=== PATIENT | male | born 1965 | race Caucasian/White ===

== ENCOUNTER 2019-06-01 08:13 | Observation (INO) ==
[2019-06-01] MEDS ORDERED: *HR* FentaNYL (PF) 100 MCG/2 ML VIAL IVP ONE (09:18)
[2019-06-01] MEDS ORDERED: 0.9 % Sodium Chloride 1,000 ML IVC ONE ×2 (09:18→10:26)
[2019-06-01] MEDS ORDERED: Ondansetron 4 MG/2 ML VIAL IVP ONE (09:18)
[2019-06-01] MEDS ORDERED: Isovue-370 500 ML BOTTLE IVP ONE (09:18)
--- NOTE | 2019-06-01 09:20 | Emergency Department Note ---
Disposition Clinical Impression: Acute kidney injury Abdominal pain Qualifiers: Abdominal location: unspecified location Qualified Code(s): R10.9 - Unspecified abdominal pain Diarrhea Qualifiers: Diarrhea type: unspecified type Qualified Code(s): R19.7 - Diarrhea, unspecified Disposition: Admitted As Inpatient Condition: Good Time of Disposition: 11:56 Abdominal Pain HPI - General Chief Complaint: ED Abdominal Pain Stated Complaint: Diarrhea, Abdominal pain Time Seen by Provider: 06/01/19 08:21 Source: patient Mode of arrival: ambulatory Limitations: no limitations Nursing Notes Reviewed: Yes Vital Signs Reviewed: Yes - History of Present Illness HPI Narrative: Nontoxic-appearing 53-year-old male with a history of a meticulous is arrives to the ER complaining of abdominal pain and diarrhea 6 days. Patient was treated by primary care provider on Wednesday and prescribed Zofran and Imodium with some relief but patient is concern for dehydration. Patient is unable to tolerate any by mouth liquid or food. He states that anytime he eats or drinks he has immediate cramping and diarrhea. He complains of diffuse lower abdominal pain that is constant with intermittent cramping. Patient also complains of general malaise and nausea. Patient denies chest pain, shortness of breath, fevers, chills, headache. Patient states that this is an ongoing issue with acute exacerbations of diarrhea. Patient was treated for diverticulitis and blood in his stool a couple of years ago. At that time a colonoscopy was performed by Dr. concepcion. Patient is concerned of a possibility of having Crohn's disease due to symptoms and his mother having Crohn's. Pt Subjective Complaint: abdominal pain Onset (ago): day(s) (since wednesday) Consistency: intermittent (Abdominal cramping with any oral intake) Location: diffuse (Lower abdomen) Pain Scale: 0 Quality: cramping, sharp Radiation: none Improves with: bowel movement Worsens with: eating Context: history of similar episodes Associated symptoms: Reports: nausea, diarrhea. Denies: vomiting, fever, chil ls, constipation, dysuria, hematochezia, hematuria Treatments prior to arrival: other (Zofran and Imodium, treated by primary care provider on Wednesday05/30/19) - Related Data Home Medications Medication Instructions Recorded Confirmed Escitalopram [Lexapro] 20 mg PO DAILY 06/01/19 06/01/19 Losartan Potassium [Cozaar] 50 mg PO DAILY 06/01/19 06/01/19 Metoprolol [Lopressor] 50 mg PO DAILY 06/01/19 06/01/19 clonazePAM [Clonazepam] 0.5 mg PO BID PRN 06/01/19 06/01/19 Allergies Allergy/AdvReac Type Severity Reaction Status Date / Time No Known Allergies Allergy Verified 12/29/16 10:58 All systems ED: reviewed and negative except as stated. Review of Systems: As Per HPI Constitutional: Denies: fever, chills, weakness, weight change Eyes: Denies: eye pain, eye discharge, vision change ENT ED: Denies: ear pain, throat pain, dental pain, hearing loss, epistaxis, con gestion, dysphagia Cardiovascular: Denies: chest pain, palpitations, dyspnea on exertion, edema, syncope Respiratory: Denies: cough, dyspnea, wheezes, hemoptysis, stridor Gastrointestinal: Reports: as per HPI, abdominal pain (Diffuse lower abdominal pain), nausea, diarrhea (With any oral intake). Denies: vomiting, constipation, hematemesis, melena, hematochezia Genitourinary: Denies: urgency, dysuria, frequency, hematuria Musculoskeletal: Denies: back pain, neck pain, arthralgia, myalgia Integumentary: Denies: rash, abrasion, lesions Neurological: Denies: headache, weakness, numbness, paresthesias, confusion, abnormal gait, vertigo Psychiatric: Denies: anxiety, depression, suicidal thoughts, homicidal thoughts, auditory hallucinations, visual hallucinations Endocrine: Denies: fatigue Hematological/Lymphatic: Denies: easy bleeding, easy bruising Allergic/Immunologic: Denies: facial swelling, urticaria Abdominal Pain PMH - Past Medical History Medical history: Reports: hypertension Male Surgical History: Reports: no surgical history Psychiatric history: Reports: anxiety, depression - Social History Smoking status: Never smoker Alcohol use: Reports: none Drug use: Reports: none Physical Exam - General Limitations: no limitations General appearance: alert, in no apparent distress - Head Head exam: atraumatic, normocephalic - Eye Eye exam: Present: normal appearance, PERRL, EOMI - ENT ENT exam: mucous membranes dry - Chest Chest inspection: Present: normal inspection, symmetric chest wall rise. Absent: tenderness - Respiratory Respiratory exam: Present: normal lung sounds bilaterally. Absent: respiratory distress, wheezes, accessory muscle use, prolonged expiratory phase - Cardiovascular Cardiovascular exam: Present: regular rate, normal heart sounds, +S1, +S2 - Abdominal Exam Abdominal exam: Present: soft, tenderness, normal bowel sounds, tenderness at McBurney's Point. Absent: distention, guarding, rebound, rigidity, psoas sign, obturator sign, heel tap sign, Amor's sign, Rovsing's sign, mass, pulsatile mass Abdominal tenderness: Present: RLQ (Right lower quadrant pain that increases with palpation), moderate - Extremities Exam Extremities exam: Present: normal inspection, full ROM - Expanded Lower Extremity Exam Neurovascular/Tendon exam: Present: normal capillary refill - Neurological Exam Neurological exam: Present: alert, oriented X3 - Psychiatric Psychiatric exam: Present: normal affect, normal mood - Skin Skin exam: Present: warm, dry, intact, normal color Course Course Narrative: Case discussed with Dr. Goss, ED attending. Dr. Rucker has had a [id number] evaluation with the patient. He recommends admission to medicine with nephrology consult for the patient's intractable diarrhea and acute kidney injury. The patient is agreeable with this plan. I spoke with Dr. Colón of the hospitalist service who has accepted the patient for admission to the hospitalist care. 1152: I spoke with Dr. Clifton, nephrology on-call. Nephrology will consult with this patient in house. Vital Signs Temperature 98.1 F 06/01/19 08:16 Pulse Rate 61 06/01/19 08:16 Respiratory Rate 20 06/01/19 08:16 Blood Pressure 110/71 06/01/19 08:16 O2 Sat by Pulse Oximetry 98 06/01/19 08:16 Temperature 98.1 F 06/01/19 08:16 Pulse Rate 50 06/01/19 10:28 Respiratory Rate 18 06/01/19 10:28 Blood Pressure 111/72 06/01/19 10:28 O2 Sat by Pulse Oximetry 93 06/01/19 10:28 Oxygen Delivery Oxygen Delivery Room Air Abdominal Pain - Medical Records Medical records reviewed: Yes I reviewed the patient's medical records. - Lab Data Lab results reviewed: Yes I reviewed the patient's lab results. Lab results narrative: Lab Results 06/01/19 06/01/19 06/01/19 Range/Units 08:22 08:22 09:20 WBC 8.3 (4.3-11.1) K/mcL RBC 4.74 (4.19-5.50) M/mcL Hgb 14.7 (12.9-16.9) g/dL Hct 44.3 (37.5-50.1) % MCV 93.5 (83.0-100.0) fL MCH 31.0 (28.0-33.3) pg MCHC 33.2 (31.6-35.5) g/dL RDW 13.0 (11.5-14.5) % Plt Count 208 (140-400) K/mcL MPV 9.1 L (9.4-12.4) fL Immature Gran % 0.2 (0-4) % Seg Neutrophils % 76.0 % Lymphocytes % 12.9 % Monocytes % 8.4 % Eosinophils % 2.3 % Basophils % 0.2 % Neutrophils # 6.3 (1.6-8.9) K/mcL Lymphocytes # 1.1 (0.6-4.6) K/mcL Monocytes # 0.7 (0.0-1.3) K/mcL Eosinophils # 0.2 (0.0-0.6) K/mcL Basophils # 0.0 (0.0-0.2) K/mcL Sodium 137 (136-145) mEq/L Potassium 4.1 (3.5-5.1) mEq/L Chloride 104 (98-107) mEq/L Carbon Dioxide 26 (23-29) mEq/L BUN 17 (6-20) mg/dL Creatinine 1.88 H (0.70-1.30) mg/dL Est GFR ( Amer) 45 L (> 60) Est GFR (Non-Af Amer) 37 L (> 60) BUN/Creatinine Ratio 9 (6-26) Glucose 117 H (70-105) mg/dL Calculated Osmolality 287 (280-300) Lactic Acid 0.8 (0.5-2.2) mmol/L Calcium 9.6 (8.6-10.3) mg/dL Magnesium 2.1 (1.6-2.6) mg/dL Total Bilirubin 1.0 (0.3-1.0) mg/dL Direct Bilirubin 0.2 (0.0-0.2) mg/dL Indirect Bilirubin 0.8 (0.0-1.2) mg/dL AST 14 (13-39) Units/L ALT 15 (7-52) Units/L Alkaline Phosphatase 73 (34-104) Units/L Serum Total Protein 7.3 (6.4-8.9) g/dL Albumin 4.1 (3.5-5.7) g/dL Globulin 3.2 (2.4-3.5) g/dL Albumin/Globulin Ratio 1.3 (1.1-2.2) Amylase 53 (29-103) Units/L Lipase 22 (11-82) Units/L Urine Color (Yellow) Urine Clarity (Clear) Urine pH (5.0-8.0) pH Units Ur Specific Lyman (1.010-1.025) Urine Protein (Neg-Trace) mg/dL Urine Glucose (UA) (Normal) mg/dL Urine Ketones (Negative) mg/dL Urine Blood (Negative) Urine Nitrite (Negative) Urine Bilirubin (Negative) Urine Urobilinogen (Normal) mg/dL Ur Leukocyte Esterase (Negative) Ur Culture Indicated? (NO) 06/01/19 Range/Units 10:00 WBC (4.3-11.1) K/mcL RBC (4.19-5.50) M/mcL Hgb (12.9-16.9) g/dL Hct (37.5-50.1) % MCV (83.0-100.0) fL MCH (28.0-33.3) pg MCHC (31.6-35.5) g/dL RDW (11.5-14.5) % Plt Count (140-400) K/mcL MPV (9.4-12.4) fL Immature Gran % (0-4) % Seg Neutrophils % % Lymphocytes % % Monocytes % % Eosinophils % % Basophils % % Neutrophils # (1.6-8.9) K/mcL Lymphocytes # (0.6-4.6) K/mcL Monocytes # (0.0-1.3) K/mcL Eosinophils # (0.0-0.6) K/mcL Basophils # (0.0-0.2) K/mcL Sodium (136-145) mEq/L Potassium (3.5-5.1) mEq/L Chloride (98-107) mEq/L Carbon Dioxide (23-29) mEq/L BUN (6-20) mg/dL Creatinine (0.70-1.30) mg/dL Est GFR ( Amer) (> 60) Est GFR (Non-Af Amer) (> 60) BUN/Creatinine Ratio (6-26) Glucose (70-105) mg/dL Calculated Osmolality (280-300) Lactic Acid (0.5-2.2) mmol/L Calcium (8.6-10.3) mg/dL Magnesium (1.6-2.6) mg/dL Total Bilirubin (0.3-1.0) mg/dL Direct Bilirubin (0.0-0.2) mg/dL Indirect Bilirubin (0.0-1.2) mg/dL AST (13-39) Units/L ALT (7-52) Units/L Alkaline Phosphatase (34-104) Units/L Serum Total Protein (6.4-8.9) g/dL Albumin (3.5-5.7) g/dL Globulin (2.4-3.5) g/dL Albumin/Globulin Ratio (1.1-2.2) Amylase (29-103) Units/L Lipase (11-82) Units/L Urine Color Dark Yellow (Yellow) Urine Clarity Clear (Clear) Urine pH 5.5 (5.0-8.0) pH Units Ur Specific Lyman 1.027 H (1.010-1.025) Urine Protein Trace (Neg-Trace) mg/dL Urine Glucose (UA) Normal (Normal) mg/dL Urine Ketones Negative (Negative) mg/dL Urine Blood Negative (Negative) Urine Nitrite Negative (Negative) Urine Bilirubin Negative (Negative) Urine Urobilinogen Normal (Normal) mg/dL Ur Leukocyte Esterase Negative (Negative) Ur Culture Indicated? NO (NO) Result diagrams: 06/01/19 08:22 06/01/19 08:22 Lab Results 06/01/19 06/01/19 06/01/19 Range/Units 08:22 08:22 09:20 WBC 8.3 (4.3-11.1) K/mcL RBC 4.74 (4.19-5.50) M/mcL Hgb 14.7 (12.9-16.9) g/dL Hct 44.3 (37.5-50.1) % MCV 93.5 (83.0-100.0) fL MCH 31.0 (28.0-33.3) pg MCHC 33.2 (31.6-35.5) g/dL RDW 13.0 (11.5-14.5) % Plt Count 208 (140-400) K/mcL MPV 9.1 L (9.4-12.4) fL Immature Gran % 0.2 (0-4) % Seg Neutrophils % 76.0 % Lymphocytes % 12.9 % Monocytes % 8.4 % Eosinophils % 2.3 % Basophils % 0.2 % Neutrophils # 6.3 (1.6-8.9) K/mcL Lymphocytes # 1.1 (0.6-4.6) K/mcL Monocytes # 0.7 (0.0-1.3) K/mcL Eosinophils # 0.2 (0.0-0.6) K/mcL Basophils # 0.0 (0.0-0.2) K/mcL Sodium 137 (136-145) mEq/L Potassium 4.1 (3.5-5.1) mEq/L Chloride 104 (98-107) mEq/L Carbon Dioxide 26 (23-29) mEq/L BUN 17 (6-20) mg/dL Creatinine 1.88 H (0.70-1.30) mg/dL Est GFR ( Amer) 45 L (> 60) Est GFR (Non-Af Amer) 37 L (> 60) BUN/Creatinine Ratio 9 (6-26) Glucose 117 H (70-105) mg/dL Calculated Osmolality 287 (280-300) Lactic Acid 0.8 (0.5-2.2) mmol/L Calcium 9.6 (8.6-10.3) mg/dL Magnesium 2.1 (1.6-2.6) mg/dL Total Bilirubin 1.0 (0.3-1.0) mg/dL Direct Bilirubin 0.2 (0.0-0.2) mg/dL Indirect Bilirubin 0.8 (0.0-1.2) mg/dL AST 14 (13-39) Units/L ALT 15 (7-52) Units/L Alkaline Phosphatase 73 (34-104) Units/L Serum Total Protein 7.3 (6.4-8.9) g/dL Albumin 4.1 (3.5-5.7) g/dL Globulin 3.2 (2.4-3.5) g/dL Albumin/Globulin Ratio 1.3 (1.1-2.2) Amylase 53 (29-103) Units/L Lipase 22 (11-82) Units/L Urine Color (Yellow) Urine Clarity (Clear) Urine pH (5.0-8.0) pH Units Ur Specific Lyman (1.010-1.025) Urine Protein (Neg-Trace) mg/dL Urine Glucose (UA) (Normal) mg/dL Urine Ketones (Negative) mg/dL Urine Blood (Negative) Urine Nitrite (Negative) Urine Bilirubin (Negative) Urine Urobilinogen (Normal) mg/dL Ur Leukocyte Esterase (Negative) Ur Culture Indicated? (NO) 06/01/19 Range/Units 10:00 WBC (4.3-11.1) K/mcL RBC (4.19-5.50) M/mcL Hgb (12.9-16.9) g/dL Hct (37.5-50.1) % MCV (83.0-100.0) fL MCH (28.0-33.3) pg MCHC (31.6-35.5) g/dL RDW (11.5-14.5) % Plt Count (140-400) K/mcL MPV (9.4-12.4) fL Immature Gran % (0-4) % Seg Neutrophils % % Lymphocytes % % Monocytes % % Eosinophils % % Basophils % % Neutrophils # (1.6-8.9) K/mcL Lymphocytes # (0.6-4.6) K/mcL Monocytes # (0.0-1.3) K/mcL Eosinophils # (0.0-0.6) K/mcL Basophils # (0.0-0.2) K/mcL Sodium (136-145) mEq/L Potassium (3.5-5.1) mEq/L Chloride (98-107) mEq/L Carbon Dioxide (23-29) mEq/L BUN (6-20) mg/dL Creatinine (0.70-1.30) mg/dL Est GFR ( Amer) (> 60) Est GFR (Non-Af Amer) (> 60) BUN/Creatinine Ratio (6-26) Glucose (70-105) mg/dL Calculated Osmolality (280-300) Lactic Acid (0.5-2.2) mmol/L Calcium (8.6-10.3) mg/dL Magnesium (1.6-2.6) mg/dL Total Bilirubin (0.3-1.0) mg/dL Direct Bilirubin (0.0-0.2) mg/dL Indirect Bilirubin (0.0-1.2) mg/dL AST (13-39) Units/L ALT (7-52) Units/L Alkaline Phosphatase (34-104) Units/L Serum Total Protein (6.4-8.9) g/dL Albumin (3.5-5.7) g/dL Globulin (2.4-3.5) g/dL Albumin/Globulin Ratio (1.1-2.2) Amylase (29-103) Units/L Lipase (11-82) Units/L Urine Color Dark Yellow (Yellow) Urine Clarity Clear (Clear) Urine pH 5.5 (5.0-8.0) pH Units Ur Specific Lyman 1.027 H (1.010-1.025) Urine Protein Trace (Neg-Trace) mg/dL Urine Glucose (UA) Normal (Normal) mg/dL Urine Ketones Negative (Negative) mg/dL Urine Blood Negative (Negative) Urine Nitrite Negative (Negative) Urine Bilirubin Negative (Negative) Urine Urobilinogen Normal (Normal) mg/dL Ur Leukocyte Esterase Negative (Negative) Ur Culture Indicated? NO (NO) - Radiology Data Radiology results reviewed: Yes I reviewed the patient's radiology results. Abdomen/Pelvis CT 06/01/19 10:26 IMPRESSION: Sigmoid diverticulosis without acute diverticulitis. Hepatomegaly with moderate steatosis. Mildly enlarged prostate. D/ / Alfie Mcdonald MD / Alife Mcdonald MD Interpreting Provider: Alfie Mcdonald MD
[2019-06-01 09:38] LABS: Basophils % 0.2 %; Eosinophils # 0.2 K/mcL (0.0-0.6); Eosinophils % 2.3 %; Hematocrit 44.3 % (37.5-50.1); Hemoglobin 14.7 g/dL (12.9-16.9); Immature Granulocytes % 0.2 % (0-4); Lymphocytes # 1.1 K/mcL (0.6-4.6); Lymphocytes % 12.9 %; Mean Corpuscular HGB Conc 33.2 g/dL (31.6-35.5); Mean Corpuscular Volume 93.5 fL (83.0-100.0); Mean Platelet Volume 9.1 fL (9.4-12.4); Monocytes # 0.7 K/mcL (0.0-1.3); Monocytes % 8.4 %; Neutrophils # 6.3 K/mcL (1.6-8.9); Platelet Count 208 K/mcL (140-400); Red Blood Count 4.74 M/mcL (4.19-5.50); White Blood Count 8.3 K/mcL (4.3-11.1)
[2019-06-01 09:55] LABS: Albumin 4.1 g/dL (3.5-5.7); Albumin/Globulin Ratio 1.3 (1.1-2.2); Bilirubin,Direct 0.2 mg/dL (0.0-0.2); Bilirubin,Indirect 0.8 mg/dL (0.0-1.2); Calcium 9.6 mg/dL (8.6-10.3); Globulin 3.2 g/dL (2.4-3.5); Magnesium 2.1 mg/dL (1.6-2.6); Potassium 4.1 mEq/L (3.5-5.1); Total Protein 7.3 g/dL (6.4-8.9)
[2019-06-01 10:24] LABS: Bilirubin,Urine Negative (Negative); Blood,Urine Negative (Negative); Clarity,Urine Clear (Clear); Color,Urine Dark Yellow (Yellow); Glucose,Urine (UA) Normal (Normal); Ketones,Urine Negative (Negative); Leukocyte Esterase,Urine Negative (Negative); Nitrite,Urine Negative (Negative); PH,Urine 5.5 pH Units (5.0-8.0); Protein,Urine Trace mg/dL (Neg-Trace); Specific Gravity,Urine 1.027 (1.010-1.025); Urobilinogen,Urine Normal (Normal)
--- NOTE | 2019-06-01 11:30 | Emergency Department Note ---
Disposition Clinical Impression: Acute kidney injury Abdominal pain Qualifiers: Abdominal location: unspecified location Qualified Code(s): R10.9 - Unspecified abdominal pain Diarrhea Qualifiers: Diarrhea type: unspecified type Qualified Code(s): R19.7 - Diarrhea, unspecified Disposition: Admitted As Inpatient Condition: Good Time of Disposition: 11:30 General Adult HPI - General Chief complaint: ED Abdominal Pain Stated complaint: Diarrhea, Abdominal pain Time Seen by Provider: 06/01/19 08:21 Source: patient Mode of arrival: ambulatory Limitations: no limitations Nursing Notes Reviewed: Yes Vital Signs Reviewed: Yes - History of Present Illness Pain Scale: 0 - Related Data Home Medications Medication Instructions Recorded Confirmed Escitalopram [Lexapro] 20 mg PO DAILY 06/01/19 06/01/19 Losartan Potassium [Cozaar] 50 mg PO DAILY 06/01/19 06/01/19 Metoprolol [Lopressor] 50 mg PO DAILY 06/01/19 06/01/19 clonazePAM [Clonazepam] 0.5 mg PO BID PRN 06/01/19 06/01/19 Allergies Allergy/AdvReac Type Severity Reaction Status Date / Time No Known Allergies Allergy Verified 12/29/16 10:58 Constitutional: Denies: fever, chills, weakness, weight change Eyes: Denies: eye pain, eye discharge, vision change ENT ED: Denies: ear pain, throat pain, dental pain, hearing loss, epistaxis, congestion, dysphagia Cardiovascular: Denies: chest pain, palpitations, dyspnea on exertion, edema, syncope Respiratory: Denies: cough, dyspnea, wheezes, hemoptysis, stridor Gastrointestinal: Reports: as per HPI, abdominal pain (Diffuse lower abdominal pain), nausea, diarrhea (With any oral intake). Denies: vomiting, constipation, hematemesis, melena, hematochezia Genitourinary: Denies: urgency, dysuria, frequency, hematuria Musculoskeletal: Denies: back pain, neck pain, arthralgia, myalgia Integumentary: Denies: rash, abrasion, lesions Neurological: Denies: headache, weakness, numbness, paresthesias, confusion, abnormal gait, vertigo Psychiatric: Denies: anxiety, depression, suicidal thoughts, homicidal thoughts, auditory hallucinations, visual hallucinations Endocrine: Denies: fatigue Hematological/Lymphatic: Denies: easy bleeding, easy bruising Allergic/Immunologic: Denies: facial swelling, urticaria Past Medical History - Past Medical History Medical history: Reports: hypertension Psychiatric history: Reports: anxiety, depression - Social History Smoking Status: Never smoker Smokeless Tobacco Status: No Alcohol use: Reports: none Drug use: Reports: none Physical Exam - General Limitations: no limitations General appearance: alert, in no apparent distress Course Vital Signs Temperature 98.1 F 06/01/19 08:16 Pulse Rate 61 06/01/19 08:16 Respiratory Rate 20 06/01/19 08:16 Blood Pressure 110/71 06/01/19 08:16 O2 Sat by Pulse Oximetry 98 06/01/19 08:16 Temperature 98.1 F 06/01/19 08:16 Pulse Rate 50 06/01/19 10:28 Respiratory Rate 18 06/01/19 12:16 Blood Pressure 103/77 06/01/19 12:16 O2 Sat by Pulse Oximetry 93 06/01/19 10:28 Oxygen Delivery Oxygen Delivery Room Air Medical Decision Making - MDM Narrative Medical decision making narrative: Abdomen/Pelvis CT 06/01/19 10:26 IMPRESSION: Sigmoid diverticulosis without acute diverticulitis. Hepatomegaly with moderate steatosis. Mildly enlarged prostate. D/ / Alife Mcdonald MD / Alfie Mcdonald MD Interpreting Provider: Alfie Mcdonald MD - Lab Data Result diagrams: 06/01/19 08:22 06/01/19 08:22 Lab Results 06/01/19 06/01/19 06/01/19 Range/Units 08:22 08:22 09:20 WBC 8.3 (4.3-11.1) K/mcL RBC 4.74 (4.19-5.50) M/mcL Hgb 14.7 (12.9-16.9) g/dL Hct 44.3 (37.5-50.1) % MCV 93.5 (83.0-100.0) fL MCH 31.0 (28.0-33.3) pg MCHC 33.2 (31.6-35.5) g/dL RDW 13.0 (11.5-14.5) % Plt Count 208 (140-400) K/mcL MPV 9.1 L (9.4-12.4) fL Immature Gran % 0.2 (0-4) % Seg Neutrophils % 76.0 % Lymphocytes % 12.9 % Monocytes % 8.4 % Eosinophils % 2.3 % Basophils % 0.2 % Neutrophils # 6.3 (1.6-8.9) K/mcL Lymphocytes # 1.1 (0.6-4.6) K/mcL Monocytes # 0.7 (0.0-1.3) K/mcL Eosinophils # 0.2 (0.0-0.6) K/mcL Basophils # 0.0 (0.0-0.2) K/mcL Sodium 137 (136-145) mEq/L Potassium 4.1 (3.5-5.1) mEq/L Chloride 104 (98-107) mEq/L Carbon Dioxide 26 (23-29) mEq/L BUN 17 (6-20) mg/dL Creatinine 1.88 H (0.70-1.30) mg/dL Est GFR ( Amer) 45 L (> 60) Est GFR (Non-Af Amer) 37 L (> 60) BUN/Creatinine Ratio 9 (6-26) Glucose 117 H (70-105) mg/dL Calculated Osmolality 287 (280-300) Lactic Acid 0.8 (0.5-2.2) mmol/L Calcium 9.6 (8.6-10.3) mg/dL Magnesium 2.1 (1.6-2.6) mg/dL Total Bilirubin 1.0 (0.3-1.0) mg/dL Direct Bilirubin 0.2 (0.0-0.2) mg/dL Indirect Bilirubin 0.8 (0.0-1.2) mg/dL AST 14 (13-39) Units/L ALT 15 (7-52) Units/L Alkaline Phosphatase 73 (34-104) Units/L Serum Total Protein 7.3 (6.4-8.9) g/dL Albumin 4.1 (3.5-5.7) g/dL Globulin 3.2 (2.4-3.5) g/dL Albumin/Globulin Ratio 1.3 (1.1-2.2) Amylase 53 (29-103) Units/L Lipase 22 (11-82) Units/L Urine Color (Yellow) Urine Clarity (Clear) Urine pH (5.0-8.0) pH Units Ur Specific Fries (1.010-1.025) Urine Protein (Neg-Trace) mg/dL Urine Glucose (UA) (Normal) mg/dL Urine Ketones (Negative) mg/dL Urine Blood (Negative) Urine Nitrite (Negative) Urine Bilirubin (Negative) Urine Urobilinogen (Normal) mg/dL Ur Leukocyte Esterase (Negative) Ur Culture Indicated? (NO) 06/01/19 Range/Units 10:00 WBC (4.3-11.1) K/mcL RBC (4.19-5.50) M/mcL Hgb (12.9-16.9) g/dL Hct (37.5-50.1) % MCV (83.0-100.0) fL MCH (28.0-33.3) pg MCHC (31.6-35.5) g/dL RDW (11.5-14.5) % Plt Count (140-400) K/mcL MPV (9.4-12.4) fL Immature Gran % (0-4) % Seg Neutrophils % % Lymphocytes % % Monocytes % % Eosinophils % % Basophils % % Neutrophils # (1.6-8.9) K/mcL Lymphocytes # (0.6-4.6) K/mcL Monocytes # (0.0-1.3) K/mcL Eosinophils # (0.0-0.6) K/mcL Basophils # (0.0-0.2) K/mcL Sodium (136-145) mEq/L Potassium (3.5-5.1) mEq/L Chloride (98-107) mEq/L Carbon Dioxide (23-29) mEq/L BUN (6-20) mg/dL Creatinine (0.70-1.30) mg/dL Est GFR ( Amer) (> 60) Est GFR (Non-Af Amer) (> 60) BUN/Creatinine Ratio (6-26) Glucose (70-105) mg/dL Calculated Osmolality (280-300) Lactic Acid (0.5-2.2) mmol/L Calcium (8.6-10.3) mg/dL Magnesium (1.6-2.6) mg/dL Total Bilirubin (0.3-1.0) mg/dL Direct Bilirubin (0.0-0.2) mg/dL Indirect Bilirubin (0.0-1.2) mg/dL AST (13-39) Units/L ALT (7-52) Units/L Alkaline Phosphatase (34-104) Units/L Serum Total Protein (6.4-8.9) g/dL Albumin (3.5-5.7) g/dL Globulin (2.4-3.5) g/dL Albumin/Globulin Ratio (1.1-2.2) Amylase (29-103) Units/L Lipase (11-82) Units/L Urine Color Dark Yellow (Yellow) Urine Clarity Clear (Clear) Urine pH 5.5 (5.0-8.0) pH Units Ur Specific Fries 1.027 H (1.010-1.025) Urine Protein Trace (Neg-Trace) mg/dL Urine Glucose (UA) Normal (Normal) mg/dL Urine Ketones Negative (Negative) mg/dL Urine Blood Negative (Negative) Urine Nitrite Negative (Negative) Urine Bilirubin Negative (Negative) Urine Urobilinogen Normal (Normal) mg/dL Ur Leukocyte Esterase Negative (Negative) Ur Culture Indicated? NO (NO) Attestation Statement - Attestation Attestation: This documentation is done with the assistance of Dragon dictation. Despite efforts made to ensure accuracy, there may be inaccuracies in taco maker or spelling and typographical errors. I have personally performed a face to face evaluation on this patient. I have reviewed and agree with the care plan. History and Exam by me shows: Patient was seen and evaluated by the nurse practitioner Antonio Hill and myself, I agree with his evaluation management plan. Patient presents today with abdominal pain he has had a history of diverticulosis but not diverticulitis. He has been using Imodium at home he thought may be picked up some type of a viral infection. He has pain in his left lower quadrant. CT exam is negative. His creatinine is bumped. I think this is from dehydration. I like to bring him in the hospital. He is agreeing that plan. Of note his doctor's been recommending him have a colonoscopy for the last couple years he says last one was was more than 5 or 10 years ago. We will speak with hospitalist for admission. Patient's getting IV fluids at this time.
--- NOTE | 2019-06-01 14:18 | Internal Med History&Physical ---
Date of Encounter: 06/01/19 Time of Encounter: 14:16 Internal Medicine - H&P: HPI History of present illness: Mr. Gutierrez is a 53 year old male home presented with progressive worsening abdominal pain associated with persistent diarrhea for almost 40 daily patient, and the patient was seen by his primary care physician who started him on Zofran as well as Imodium with no significant relief of his symptoms. The patient stated that he was not able to eat for the last 24 hour due to severe that started after each meal. the patient reported significant improvement of the HEENT that area since a.m., he has only one bowel movement that this did lose, however he didn't believe that that because he is not eating, The patient was evaluated by the ER staff and lubricated that was suggestive of acute kidney injury, the patient was admitted for further evaluation and management. Past Med Surg Social Fam HX - Past Medical History Medical history: hypertension Additional medical history: diverticulosis Psychiatric history: anxiety, depression - Social History Smoking Status: Never smoker Smokeless Tobacco Status: No Alcohol use: none Drug use: none Internal Medicine - H&P: Meds Escitalopram [Lexapro] 10 mg PO DAILY 06/01/19 [History] Metoprolol Succinate [Toprol Xl] 50 mg PO DAILY 06/01/19 [History] Ondansetron HCl 8 mg PO Q8H PRN 06/01/19 [History] clonazePAM [Clonazepam] 0.5 mg PO BID PRN 06/01/19 [History] Ciprofloxacin HCl [Cipro] 500 mg PO BID 3 Days #6 tablet 06/03/19 [Rx] Lactobacillus [Culturelle] 2 each PO DAILY 6 Days #18 cap.[email or web address] 06/03/19 [Rx] Allergy/AdvReac Type Severity Reaction Status Date / Time No Known Allergies Allergy Verified 06/01/19 22:05 All Systems PM: A 10-system review of systems was performed and is negative for pertinent findings except as documented above in the HPI. - Constitutional Vitals: Temp Pulse Resp BP Pulse Ox 98.1 F 50 18 103/77 93 06/01/19 08:16 06/01/19 10:28 06/01/19 12:16 06/01/19 12:16 06/01/19 10:28 Exam: ` - Head Head exam: Present: atraumatic, normocephalic - Eye Eye exam: Present: PERRL, conjuntiva pink, sclera anicteric Pupils: Present: PERRL - Neck Neck exam general surgery: Present: supple, trachea midline. Absent: lymphadenopathy - Respiratory Respiratory exam: Present: CTAB. Absent: accessory muscle use, rales, rhonchi, wheezes - Cardiovascular Cardiovascular exam: Present: RRR, +S1, +S2. Absent: diastolic murmur, gallop, rubs, systolic murmur - GI/Abdominal GI/Abdominal exam: Present: normal bowel sounds, soft, no peritoneal signs. Absent: distended, tenderness - Extremities Exam Extremities exam: Present: warm, radial pulses palpable and symmetrical. Absent: calf tenderness, cyanotic, pedal edema - Neurological Exam Neurological exam: Present: CN II-XII intact, oriented X3, no focal deficits. Absent: pronater drift, facial droop, speech deficit - Skin Skin exam: Present: dry, intact Internal Med - H&P Results - Labs CBC & Chem 7: 06/02/19 05:09 06/03/19 02:12 Labs: Short CBC 06/01/19 Range/Units 08:22 WBC 8.3 (4.3-11.1) K/mcL Hgb 14.7 (12.9-16.9) g/dL Hct 44.3 (37.5-50.1) % Plt Count 208 (140-400) K/mcL Neutrophils # 6.3 (1.6-8.9) K/mcL BMP 06/01/19 08:22 Sodium 137 Potassium 4.1 Chloride 104 Carbon Dioxide 26 BUN 17 Creatinine 1.88 H Glucose 117 H Calcium 9.6 Liver Function 06/01/19 Range/Units 08:22 Total Bilirubin 1.0 (0.3-1.0) mg/dL Direct Bilirubin 0.2 (0.0-0.2) mg/dL AST 14 (13-39) Units/L ALT 15 (7-52) Units/L Alkaline Phosphatase 73 (34-104) Units/L Albumin 4.1 (3.5-5.7) g/dL Urine 06/01/19 Range/Units 10:00 Urine Color Dark Yellow (Yellow) Urine Clarity Clear (Clear) Urine pH 5.5 (5.0-8.0) pH Units Ur Specific [place] 1.027 H (1.010-1.025) Urine Protein Trace (Neg-Trace) mg/dL Urine Glucose (UA) Normal (Normal) mg/dL - Impressions ITS Impressions Abdomen/Pelvis CT 06/01/19 10:26 IMPRESSION: Sigmoid diverticulosis without acute diverticulitis. Hepatomegaly with moderate steatosis. Mildly enlarged prostate. D/ / Alfie Mcdonald MD / Alfie Mcdonald MD Interpreting Provider: Alfie Mcdonald MD - Assessment and Plan (1) Diarrhea Current Visit: Yes Status: Acute Assessment and plan: the patient is complaining of persistent crampy abdomen pain associated with d iarrhea, DD *Gastroenteritis *Gastritis *Diverticulitis PLAN: - NPO apart from meds and advance diet as tolerated - IVF - Stool WBC, O/P, C/S, Stool C.diff - Urine C+S - CBCD, BMP in AM - Zofran (ondansetron) PRN - DVT prophylaxis Qualifiers: Diarrhea type: unspecified type Qualified Code(s): R19.7 - Diarrhea, unspecified (2) Acute kidney injury Current Visit: Yes Status: Acute Assessment and plan: Most likely secondary to volume depletion in the setting of severe persistent diarrhea and decreased oral intake, we'll start the patient on normal saline, continue to monitor renal function test, renal dosing of medication as the current EGFR. (3) Hypertension Current Visit: Yes Status: Acute Assessment and plan: we'll continue to hold losartan for now giving his kidney injury, constipation when necessary antihypertensive for systolic blood pressure above 180 and the blood pressure above 100. Qualifiers: Qualified Code(s): I10 - Essential (primary) hypertension - Time Spent With Patient Total time spent is greater than 50% in coordination of care (as documented) at patient's floor/unit and/or counseling patient:
--- NOTE | 2019-06-01 14:52 | Nephrology Consult Note ---
Date of Encounter: 06/01/19 Time of Encounter: 13:15 Assessment and Plan (1) Acute kidney injury Current Visit: Yes Status: Acute He has a simple nonoliguric acute kidney injury of prerenal etiology from the diarrhea. I recommend volume expansion with IV fluids. He does have a positive family history for CKD with his father, and he requested to have nephrology consulted since his father sees Dr. Latham. I recommend IV fluid replacement, and following a renal protective strategy: avoid nephrotoxic agents as able, follow strict I's and O's and daily weights, and renal dosing until his renal function improves, which most likely well. Thank you for having consulted the [facility], and my colleague Dr. Latham will be on-call starting on Wednesday morning. (2) Abdominal pain Current Visit: Yes Status: Acute As per primary Qualifiers: Abdominal location: unspecified location Qualified Code(s): R10.9 - U nspecified abdominal pain (3) Diarrhea Current Visit: Yes Status: Acute As per primary. Qualifiers: Diarrhea type: unspecified type Qualified Code(s): R19.7 - Diarrhea, un specified (4) Hypertension Current Visit: Yes Status: Acute Hold the losartan in the setting of the DELONTE. Qualifiers: Qualified Code(s): I10 - Essential (primary) hypertension History of Present Illness - Reason for Consult Consult date: 06/01/19 Acute Kidney Injury Requesting physician: Antonio Hill - Chief Complaint Diarrhea with DELONTE - History of Present Illness Patient is a very pleasant 53-year-old male with a past medical history of anxiety, depression, hypertension and et al who presented after several days of diarrhea. He was found in the emergency department of elevated serum creatinine, which was new, and nephrology was consulted. Patient said that his father has chronic kidney disease and sees Dr. Latham. Patient reported that he is not himself seen a senior sharepoint architect in the past, and he denied consuming excessive NSAIDs. He reports that he typically tries to consume lots of water, but since his diarrhea became prominent, and he was not able to consume liquids and foods as well as he typically does. He did not see blood in the stool. He was accompanied by spouse, and she has not been ill for many shared meals. Family History: father has CKD Past Med Surg Social Fam HX - Past Medical History Medical history: hypertension Additional medical history: diverticulosis Psychiatric history: anxiety, depression - Social History Smoking Status: Never smoker Smokeless Tobacco Status: No Alcohol use: none Drug use: none Medications and Allergies Escitalopram [Lexapro] 10 mg PO DAILY 06/01/19 [History] Losartan Potassium [Cozaar] 50 mg PO DAILY 06/01/19 [History] Metoprolol Succinate [Toprol Xl] 50 mg PO DAILY 06/01/19 [History] Ondansetron HCl 8 mg PO Q8H PRN 06/01/19 [History] clonazePAM [Clonazepam] 0.5 mg PO BID PRN 06/01/19 [History] Allergy/AdvReac Type Severity Reaction Status Date / Time No Known Allergies Allergy Verified 06/01/19 22:05 Review of Systems All Systems: reviewed and no additional remarkable complaints except as stated Exam - Vital Signs Vital signs: Initial Vital Signs Temp Pulse Resp BP Pulse Ox 98.1 F 61 20 110/71 98 06/01/19 08:16 06/01/19 08:16 06/01/19 08:16 06/01/19 08:16 06/01/19 08:16 Vital Signs - Last 8 Hours Temp Pulse Resp BP Pulse Ox 06/01/19 12:16 18 103/77 06/01/19 10:28 50 18 111/72 93 06/01/19 08:16 98.1 F 61 20 110/71 98 Intake and Output 05/31/19 06/01/19 06/01/19 23:59 07:59 15:59 Intake Total 1999 Balance 1999 Intake: IV Fluids 1999 0.9 % Sodium Chloride 1,000 ML 1999 @ 999 mls/hr IVC .Q1H1M [facility] Rx# :[id number] Other: Weight 117.299 kg Patient Weight 06/01/19 23:59 Weight 117.299 kg - General Appearance General appearance: well-developed, well-nourished, appears started age EENT: ATNC, PERRL, mucous membranes moist Neck: no JVD, supple Respiratory: no kyphosis, clear Cardiology: no murmurs, no edema, regular rate, regular rhythm, normal S1, normal S2 Gastrointestinal: normoactive bowel sounds, no tenderness, no guarding Integumentary: no rash, warm and dry Neurologic: no focal deficit, no asterixis, alert and oriented x3 Musculoskeletal: no deformities, no erythema, no cyanosis Psychiatric: mood/affect appropriate, cooperative Results - Lab Results 06/02/19 05:09 06/02/19 05:09 Most recent lab results 06/01/19 08:22 Calcium 9.6 Magnesium 2.1 Consult Discharge Plan - Plan Referrals: Kimo Pablo MD [Primary Care Provider] -
[2019-06-01] MEDS ORDERED: Naloxone 0.4 MG/ML INJ IVP PRN (16:24)
[2019-06-01] MEDS: 0.9 % Sodium Chloride 1,000 ML IVC SCH (17:29)
[2019-06-01 18:09] LABS: Adenovirus F 40/41 PCR Not detected (Not detect); Astrovirus PCR Not detected (Not detect); C.difficile Toxin A/B Gene PCR Not detected (Not detect); Campylobacter by PCR Not detected (Not detect); Cryptosporidium by PCR Not detected (Not detect); Cyclospora cayetanensis PCR Not detected (Not detect); E. coli O157 by PCR Not detected (Not detect); Entamoeba histolytica PCR Not detected (Not detect); Enteroaggregative E.coli(EAEC) Not detected (Not detect); Enteropathogenic E.coli(EPEC) Not detected (Not detect); Enterotoxigenic E.coli (ETEC) Not detected (Not detect); Giardia lamblia PCR Not detected (Not detect); Norovirus GI/GII PCR Not detected (Not detect); Plesiomonas shigelloides PCR Not detected (Not detect); Rotavirus A PCR Not detected (Not detect); Salmonella PCR Not detected (Not detect); Sapovirus PCR Not detected (Not detect); Shig/EnteroinvasiveE coli EIEC Not detected (Not detect); Shigalike tox-prod E coli STEC Not detected (Not detect); Vibrio PCR Not detected (Not detect); Vibrio cholerae PCR Not detected (Not detect); Yersinia enterocolitica PCR Not detected (Not detect)
[2019-06-01] MEDS ORDERED: clonazePAM 0.5 MG TABLET PO PRN (20:46)
[2019-06-02] MEDS: 0.9 % Sodium Chloride 1,000 ML IVC SCH (01:27)
[2019-06-02 05:29] LABS: Basophils % 0.3 %; Eosinophils # 0.2 K/mcL (0.0-0.6); Eosinophils % 3.2 %; Hematocrit 39.6 % (37.5-50.1); Immature Granulocytes % 0.5 % (0-4); Lymphocytes # 1.5 K/mcL (0.6-4.6); Lymphocytes % 22.8 %; Mean Corpuscular HGB Conc 32.8 g/dL (31.6-35.5); Mean Corpuscular Hemoglobin 31.4 pg (28.0-33.3); Mean Corpuscular Volume 95.7 fL (83.0-100.0); Mean Platelet Volume 9.1 fL (9.4-12.4); Monocytes # 0.6 K/mcL (0.0-1.3); Monocytes % 8.9 %; Neutrophils # 4.3 K/mcL (1.6-8.9); Platelet Count 169 K/mcL (140-400); Red Blood Count 4.14 M/mcL (4.19-5.50); Red Cell Distribution Width 12.9 % (11.5-14.5); Segmented Neutrophils % 64.3 %; White Blood Count 6.6 K/mcL (4.3-11.1)
[2019-06-02 05:35] LABS: INR 1.1; Prothrombin Time 12.6 Seconds (9.4-12.1)
[2019-06-02 05:38] LABS: Activated Partial Thrombo Time 32.9 Seconds (26.0-36.0)
[2019-06-02 05:49] LABS: Albumin 3.4 g/dL (3.5-5.7); Albumin/Globulin Ratio 1.3 (1.1-2.2); Bilirubin,Total 0.8 mg/dL (0.3-1.0); Calcium 8.7 mg/dL (8.6-10.3); Chol/HDL Ratio 4.7 (0-4.9); Globulin 2.6 g/dL (2.4-3.5); Magnesium 1.9 mg/dL (1.6-2.6); Phosphorous 2.7 mg/dL (2.7-4.5); Potassium 3.9 mEq/L (3.5-5.1)
--- NOTE | 2019-06-02 08:24 | Internal Med Progress Note ---
Hospitalist Progress Note - Encounter Date of Encounter: 06/02/19 Time of Encounter: 08:23 - Subjective Interval History: Patient seen and examined this morning and was in no acute overnight events. Denies new complaints. He had about 3-4 episodes of loose watery bowel movement. Afebrile and hemodynamically stable. Feeling much better today. Denies any abdominal pain currently but had some overnight. Denies any blood in stool. Denies any nausea or vomiting. - Exam Vitals: Temp Pulse Resp BP Pulse Ox 97.8 F 59 15 127/82 97 06/02/19 06:53 06/02/19 06:53 06/02/19 06:53 06/02/19 06:53 06/02/19 06:53 Exam: General: In no acute distress. obese Respiratory exam: CTAB. no accessory muscle use, rales, rhonchi, wheezes Cardiovascular exam: RRR, +S1, +S2. no murmur, gallop, rubs. GI/Abdominal exam: Non-tender, Non-distended, normal bowel sounds, soft, no peritoneal signs. Extremities exam: no pedal edema, pulses palpable in b/l lower extremities. no calf tenderness Neurological exam: CN II-XII intact, AO X3, no focal deficits. Skin exam: No skin rash - Assessment and Plan (1) Abdominal pain Current Visit: Yes Status: Acute (2) Diarrhea Current Visit: Yes Status: Acute (3) Acute kidney injury Current Visit: Yes Status: Acute (4) Hypertension Current Visit: Yes Status: Acute - Summary of Assessment and Plan Summary of Assessment and Plan: Assessment Acute Acute diarrhea DELONTE Chronic depression, anxiety HTN Plan - c/w IVF with LR. Keep NPO for now to give bowel rest. Resume diet at night. No leukocytosis, GI panel negative. UA unremarkable. No change in medication, OTC mediacation, New place of food or sick contact. 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 CT abdomen unremarkable. Possibly viral infection. Keep on probiotics - Renal function improving. c/w IVF. Likely prerenal. Nephrology consulted. Hold losartan for now. BP stable. - c/w home antidepressants. Internal Medicine: Result - Labs CBC & Chem 7: 06/02/19 05:09 06/02/19 05:09 Labs: Short CBC 06/01/19 06/02/19 Range/Units 08:22 05:09 WBC 8.3 6.6 (4.3-11.1) K/mcL Hgb 14.7 13.0 D (12.9-16.9) g/dL Hct 44.3 39.6 (37.5-50.1) % Plt Count 208 169 (140-400) K/mcL Neutrophils # 6.3 4.3 (1.6-8.9) K/mcL BMP 06/01/19 06/02/19 08:22 05:09 Sodium 137 139 Potassium 4.1 3.9 Chloride 104 105 Carbon Dioxide 26 25 BUN 17 14 Creatinine 1.88 H 1.65 H Glucose 117 H 104 Calcium 9.6 8.7 Liver Function 06/01/19 06/02/19 Range/Units 08:22 05:09 Total Bilirubin 1.0 0.8 (0.3-1.0) mg/dL Direct Bilirubin 0.2 (0.0-0.2) mg/dL AST 14 10 L (13-39) Units/L ALT 15 11 (7-52) Units/L Alkaline Phosphatase 73 68 (34-104) Units/L Albumin 4.1 3.4 L (3.5-5.7) g/dL Urine 06/01/19 Range/Units 10:00 Urine Color Dark Yellow (Yellow) Urine Clarity Clear (Clear) Urine pH 5.5 (5.0-8.0) pH Units Ur Specific [place] 1.027 H (1.010-1.025) Urine Protein Trace (Neg-Trace) mg/dL Urine Glucose (UA) Normal (Normal) mg/dL - ABG Interpretation ABG results: PT/INR, D-dimer PT 12.6 Seconds (9.4-12.1) H 06/02/19 05:09 - Impressions Impressions Abdomen/Pelvis CT 06/01/19 10:26 IMPRESSION: Sigmoid diverticulosis without acute diverticulitis. Hepatomegaly with moderate steatosis. Mildly enlarged prostate. D/ / Alfie Mcdonald MD / Alfie Mcdonald MD Interpreting Provider: Alfie Mcdonald MD Consult Discharge Plan - Plan Referrals: Beam,Kimo W, MD [Primary Care Provider] - (1) Abdominal pain Qualifiers: Abdominal location: unspecified location Qualified Code(s): R10.9 - Unspecified abdominal pain (2) Diarrhea Qualifiers: Diarrhea type: unspecified type Qualified Code(s): R19.7 - Diarrhea, unspecified
[2019-06-02] MEDS: Pantoprazole 40 MG VIAL IVP SCH (09:37)
[2019-06-02] MEDS: Metoprolol XL (24 HR) Succ 50 MG TAB.ER.24H PO SCH (09:38)
[2019-06-02] MEDS: Ringers Solution, Lactated 1,000 ML IVC SCH ×2 (10:38→19:50)
[2019-06-02] MEDS: Lactobacillus 1 EACH CAP.SPRINK PO SCH (10:38)
--- NOTE | 2019-06-02 18:27 | Nephrology Progress Note ---
Date of Encounter: 06/02/19 - Assessment and Plan (1) Abdominal pain Current Visit: Yes Status: Acute Qualifiers: Abdominal location: unspecified location Qualified Code(s): R10.9 - Unspecified abdominal pain (2) Diarrhea Current Visit: Yes Status: Acute Qualifiers: Diarrhea type: unspecified type Qualified Code(s): R19.7 - Diarrhea, unspecified (3) Acute kidney injury Current Visit: Yes Status: Acute (4) Hypertension Current Visit: Yes Status: Acute Qualifiers: Qualified Code(s): I10 - Essential (primary) hypertension Objective - Vital Signs Vital signs: Vital Signs Temp Pulse Resp BP Pulse Ox 06/02/19 14:27 97.3 F L 75 15 122/80 98 06/02/19 10:27 97.4 F L 54 15 130/74 97 06/02/19 09:40 97 06/02/19 06:53 97.8 F 59 15 127/82 97 06/02/19 03:14 97.8 F 57 14 130/74 97 06/01/19 23:01 98.0 F 71 14 146/86 97 06/01/19 19:17 97.9 F 68 17 115/67 98 Intake and Output 06/02/19 06/02/19 06/02/19 07:59 15:59 23:59 Intake Total 1000 / 2000 1000 / 2000 0 / 2000 Output Total 400 / 800 400 / 800 Balance 600 / 1200 600 / 1200 0 / 1200 Intake: IV Fluids 1000 / 2000 1000 / 2000 0.9 % Sodium Chloride 1,000 ML 1000 / 2000 1000 / 2000 @ 125 mls/hr IVC .Q8H [facility] Rx#: [id number] Oral 0 / 0 0 / 0 Output: Urine 400 / 800 400 / 800 Other: Meal npo Dinner Percent of Meal Consumed 0% Stool Size Large Stool Consistency liquid Stool Color Brown Yellow Green # Voids 1 # Bowel Movements 3 Weight 116.3 kg Blood Glucose* 87 Patient Weight 06/02/19 23:59 Weight 116.3 kg - Lab 06/02/19 05:09 06/02/19 05:09 Consult Discharge Plan - Plan Referrals: Kimo Pablo MD [Primary Care Provider] -
[2019-06-03 02:49] LABS: Potassium 3.8 mEq/L (3.5-5.1)
[2019-06-03] MEDS: Ringers Solution, Lactated 1,000 ML IVC SCH (03:17)
[2019-06-03] MEDS: Pantoprazole 40 MG VIAL IVP SCH (08:50)
[2019-06-03] MEDS: Lactobacillus 1 EACH CAP.SPRINK PO SCH (08:51)
[2019-06-03] MEDS: Metoprolol XL (24 HR) Succ 50 MG TAB.ER.24H PO SCH (08:51)
[2019-06-03] MEDS ORDERED: Ringers Solution, Lactated 500 ML IVC ONE (10:26)
[2019-06-03 10:48] VITALS: BP 141/82
[2019-06-03] MEDS ORDERED: 0.9 % Sodium Chloride 500 ML ONE (11:34)
--- NOTE | 2019-06-03 11:36 | Discharge Summary ---
- NOTES TO OUTPATIENT PROVIDER Notes to Outpatient Provider: Patient was given a prescription of ciprofloxacin for 3 days to take or if he continues to have severe diarrhea. He was asked to hold losartan until follow-up BMP done next week. Patient is concerned for unclear reason urine after explanation and clinical improvement of diarrhea and renal function. However he continues to do have diarrhea beyond 2-3 weeks Will need GI consultation for possible colonoscopy. Orders not resulted at time of discharge: Pending orders 06/02/19 04:00 Urinalysis reflex Microscopic [URIN] AM 0400 Date of Encounter: 06/03/19 Time of Encounter: 11:34 - Discharge Diagnosis (1) Abdominal pain Priority: Secondary Status: Acute Qualifiers: Abdominal location: generalized Qualified Code(s): R10.84 - Generalized abdominal pain (2) Diarrhea Priority: Primary Status: Acute Qualifiers: Diarrhea type: unspecified type Qualified Code(s): R19.7 - Diarrhea, unspecified (3) Acute kidney injury Priority: Primary Status: Acute (4) Hypertension Priority: Secondary Status: Acute Qualifiers: Qualified Code(s): I10 - Essential (primary) hypertension Hospital course: Mr. Gutierrez is a 53 year old male with past medical history of anxiety, depression, hypertension came in with complain of persistent severe diarrhea was found to have DELONTE. Patient is losartan was held and patient was given IV fluids. GI panel was unremarkable as well as urine analysis was unremarkable. He did not have any fevers, leukocytosis. His diarrhea clinically improved with only about 4 a day yesterday. He was not started on any antibiotics. His renal function improved however not completely at baseline however his renal baseline is not completely known but he denies any renal history. He did appear somewhat distressed for unclear reason. After discussion we will prescribe ciprofloxacin for 3 days to be taken if he continues to have severe diarrhea more than 5-6 episodes and not able to keep himself hydrated. Will need follow- up BMP next week and PCP follow-up. Losartan has been held for now until follow-up care. Asked him to take Imodium for symptomatic relief. Discharge discussed with: patient, family, nurse, [employer] [facility] consultant - Time Spent with Patient Total time spent providing and/or coordinating discharge services: Time spent: Greater than 30 minutes (40) - Discharge Medications Prescriptions: New Ciprofloxacin HCl [Cipro] 500 mg PO BID 3 Days #6 tablet Lactobacillus [Culturelle] 2 each PO DAILY 6 Days #18 [email or web address] Continued Escitalopram [Lexapro] 10 mg PO DAILY clonazePAM [Clonazepam] 0.5 mg PO BID PRN PRN Reason: Anxiety Metoprolol Succinate [Toprol Xl] 50 mg PO DAILY Ondansetron HCl 8 mg PO Q8H PRN PRN Reason: NAUSEA/VOMITING Discontinued Losartan Potassium [Cozaar] 50 mg PO DAILY Home Medications: Escitalopram [Lexapro] 10 mg PO DAILY 06/01/19 [History] Metoprolol Succinate [Toprol Xl] 50 mg PO DAILY 06/01/19 [History] Ondansetron HCl 8 mg PO Q8H PRN 06/01/19 [History] clonazePAM [Clonazepam] 0.5 mg PO BID PRN 06/01/19 [History] Ciprofloxacin HCl [Cipro] 500 mg PO BID 3 Days #6 tablet 06/03/19 [Rx] Lactobacillus [Culturelle] 2 each PO DAILY 6 Days #18 [email or web address] 06/03/19 [Rx] Allergies/Adverse Reactions: Allergy/AdvReac Type Severity Reaction Status Date / Time No Known Allergies Allergy Verified 06/01/19 22:05 Date of admission: 06/01/19 12:03 Primary care physician: Kimo Pablo MD Consults: 06/01/19 11:53 Consult to Nephrology [CONS] Stat Consulting Provider: Kidney Brianne/ARELI/WAYNE/DAVID Reason for Consult: Acute kidney injury Time Notified: 11:53 Call Completed: Yes Discharging clinician: Mary Ann Denson - Constitutional Vitals: Temp Pulse Resp BP Pulse Ox 98.1 F 56 15 141/82 96 06/03/19 10:47 06/03/19 10:47 06/03/19 10:47 06/03/19 10:47 06/03/19 10:47 Exam: General: In no acute distress. obese Respiratory exam: CTAB. no accessory muscle use, rales, rhonchi, wheezes Cardiovascular exam: RRR, +S1, +S2. no murmur, gallop, rubs. GI/Abdominal exam: Non-tender, Non-distended, normal bowel sounds, soft, no peritoneal signs. Extremities exam: no pedal edema, pulses palpable in b/l lower extremities. no calf tenderness Neurological exam: CN II-XII intact, AO X3, no focal deficits. Skin exam: No skin rash - Patient Status Disposition: Home, Self-Care Condition: Good - Discharge Instructions Follow Up With: Kimo Pablo MD [Primary Care Provider] -
== END 2019-06-03 14:03 | disposition home or self-care (01) ==
LOC: 3ANU 08:13 → EMEROOARM 08:13 → SUATTDRO 12:03 → 3ANU 12:29
PROVIDERS: ADMIT Internal Medicine Nephrology; ATTEND Internal Medicine

== ENCOUNTER 2021-07-25 21:36 | Observation (INO) ==
[2021-07-25] MEDS ORDERED: Aspirin 81 MG TAB.CHEW PO ONE (22:04)
[2021-07-25 22:19] LABS: Basophils % 0.3 %; Eosinophils # 0.2 K/mcL (0.0-0.6); Eosinophils % 2.8 %; Hematocrit 41.9 % (37.5-50.1); Immature Granulocytes % 0.3 % (0-4); Lymphocytes # 2.1 K/mcL (0.6-4.6); Lymphocytes % 28.1 %; Mean Corpuscular HGB Conc 33.4 g/dL (31.6-35.5); Mean Corpuscular Hemoglobin 31.7 pg (28.0-33.3); Mean Corpuscular Volume 94.8 fL (83.0-100.0); Mean Platelet Volume 9.4 fL (9.4-12.4); Monocytes # 0.7 K/mcL (0.0-1.3); Monocytes % 8.8 %; Neutrophils # 4.4 K/mcL (1.6-8.9); Platelet Count 175 K/mcL (140-400); Red Blood Count 4.42 M/mcL (4.19-5.50); Red Cell Distribution Width 12.7 % (11.5-14.5); Segmented Neutrophils % 59.7 %; White Blood Count 7.4 K/mcL (4.3-11.1)
[2021-07-25 22:40] LABS: Alanine Aminotransferase 16 Units/L (7-52); Albumin 4.1 g/dL (3.5-5.7); Albumin/Globulin Ratio 1.4 (1.1-2.2); Alkaline Phosphatase 72 Units/L (34-104); Aspartate Amino Transferase 17 Units/L (13-39); BUN/Creatinine Ratio 11 (6-26); Bilirubin,Direct 0.1 mg/dL (0.0-0.2); Bilirubin,Indirect 0.4 mg/dL (0.0-1.0); Bilirubin,Total 0.5 mg/dL (0.3-1.0); Blood Urea Nitrogen 17 mg/dL (6-20); Carbon Dioxide 28 mEq/L (23-29); Chloride 102 mEq/L (98-107); Globulin 2.9 g/dL (2.4-3.5); Glucose 200 mg/dL (70-105); Lipase 36 Units/L (11-82); Osmolality,Calculated 289 (280-300); Potassium 3.8 mEq/L (3.5-5.1); Sodium 136 mEq/L (136-145); Troponin I < 0.03 ng/mL (< 0.04); eGFR For African Americans 56 (> 60); eGFR For Non-African Americans 46 (> 60)
[2021-07-25] MEDS ORDERED: Ondansetron 4 MG/2 ML VIAL IVP PRN (23:49)
[2021-07-25] MEDS ORDERED: Melatonin 3 MG TABLET PO PRN (23:49)
[2021-07-25] MEDS ORDERED: Acetaminophen 325 MG TABLET PO PRN (23:49)
[2021-07-25] MEDS ORDERED: Perflutren Lipid Microsphere 1.3 ML in 0.9 % Sodium Chloride 8.7 ML IVP PRN (23:49)
[2021-07-25] MEDS ORDERED: Naloxone 0.4 MG/ML INJ IVP PRN (23:49)
[2021-07-26] MEDS ORDERED: *HR* Heparin 5,000 UNIT/ML VIAL IVP PRN ×2 (00:08)
[2021-07-26] MEDS ORDERED: *HR* Heparin 5,000 UNIT/ML VIAL IVP ONE (00:08)
[2021-07-26] MEDS ORDERED: Nitroglycerin 0.4 MG TAB.SUBL SL PRN (00:11)
[2021-07-26] MEDS ORDERED: Heparin 25,000UNIT/250ML 1/2NS 25,000 UNIT/250 ML IV.SOLN IVC SCH (00:15)
[2021-07-26 00:51] LABS: Influenza A PCR Negative (Negative); Influenza B PCR Negative (Negative); Resp. Syncytial Virus PCR Negative (Negative)
[2021-07-26 01:04] LABS: SARS-CoV-2 by PCR (In House) Negative (Negative)
[2021-07-26 06:15] LABS: Basophils % 0.3 %; Eosinophils # 0.1 K/mcL (0.0-0.6); Eosinophils % 1.3 %; Hematocrit 42.9 % (37.5-50.1); Hemoglobin 14.4 g/dL (12.9-16.9); Immature Granulocytes % 0.4 % (0-4); Lymphocytes # 2.2 K/mcL (0.6-4.6); Lymphocytes % 28.2 %; Mean Corpuscular HGB Conc 33.6 g/dL (31.6-35.5); Mean Corpuscular Hemoglobin 32.1 pg (28.0-33.3); Mean Corpuscular Volume 95.5 fL (83.0-100.0); Mean Platelet Volume 9.3 fL (9.4-12.4); Monocytes # 0.6 K/mcL (0.0-1.3); Monocytes % 8.1 %; Neutrophils # 4.9 K/mcL (1.6-8.9); Platelet Count 183 K/mcL (140-400); Red Blood Count 4.49 M/mcL (4.19-5.50); Red Cell Distribution Width 12.7 % (11.5-14.5); Segmented Neutrophils % 61.7 %; White Blood Count 7.9 K/mcL (4.3-11.1)
[2021-07-26 06:27] LABS: Prothrombin Time 11.6 Seconds (9.4-12.1)
[2021-07-26 06:28] LABS: Heparin anti-factor XA UFH 0.47 IU/mL (0.30-0.70)
[2021-07-26 06:38] LABS: BUN/Creatinine Ratio 12 (6-26); Blood Urea Nitrogen 18 mg/dL (6-20); Calcium 9.4 mg/dL (8.6-10.3); Carbon Dioxide 24 mEq/L (23-29); Chloride 105 mEq/L (98-107); Chol/HDL Ratio 4.6 (0-4.9); Cholesterol 165 mg/dL (< 200); Glucose 125 mg/dL (70-105); HDL Cholesterol 36 mg/dL (40-59); LDL Cholesterol,Calculated 87 mg/dL (< 100); Osmolality,Calculated 287 (280-300); Potassium 4.2 mEq/L (3.5-5.1); Sodium 137 mEq/L (136-145); Triglycerides 209 mg/dL (< 150); Troponin I < 0.03 ng/mL (< 0.04); eGFR For African Americans 58 (> 60); eGFR For Non-African Americans 48 (> 60)
[2021-07-26] MEDS ORDERED: Metoprolol XL (24 HR) Succ 50 MG TAB.ER.24H PO SCH (09:00)
[2021-07-26] MEDS ORDERED: Aspirin 81 MG TAB.CHEW PO SCH ×2 (09:00→21:00)
[2021-07-26] MEDS ORDERED: Regadenoson 0.4 MG/5 ML SYRINGE IVP ONE (10:00)
[2021-07-26 10:33] LABS: Estimated Average Glucose 137 mg/dl; Hemoglobin A1C 6.4 %
[2021-07-26 15:04] VITALS: BP 127/82; PULSE 52; TEMP 97.7; O2SAT 98
[2021-07-27] MEDS ORDERED: Metoprolol XL (24 HR) Succ 50 MG TAB.ER.24H PO SCH (09:00)
== END 2021-07-26 17:48 | disposition home or self-care (01) ==
LOC: EMEROOARM 21:36 → 3BNU 21:36
PROVIDERS: ADMIT Internal Medicine; ATTEND Internal Medicine